=== PATIENT | female | born 1955 | race Caucasian/White ===

== ENCOUNTER 2018-08-04 12:17 | Day surgery (SDC) | payer OTHER ==
[~2018-08-04] VITALS: Ht 172.7 cm; Wt 78.9 kg
[~2018-08-04 12:17] MED LIST: CIPR500; CIPR500 PO; FLUO20 PO; GABA300 PO; HYDACE5 PO; IBUP800 PO; LORA1 PO; METCAR750 PO; NAPR500 PO; PENVK500 PO; RANI150 PO; SULTRIDS; SULTRIDS PO; TRAM50; TRAM50 PO; TRAZ100 PO
[2018-08-04] MEDS ORDERED: IBUP400 (13:17)
[2018-08-04] MEDS ORDERED: OMEPRAZOLE20 MG (13:17)
--- NOTE | 2018-08-04 14:55 | NUR ---
08/04/18 0800 Marion Epperson PT. VERBALIZES NOT HAVING ANY PAIN, SORE THROAT, OR TROUBLE SWALLOWING. PT. JUST MENTIONED FEELING SOME TINGLING IN HER THROAT. PT. DRINKING COFFEE.
== END 2018-08-04 14:33 | disposition home or self-care (01) ==
LOC: ORSCSDS 12:17
PROVIDERS: Internal Medicine Gastroenterology
PROC: 0DB68ZX Excision of Stomach, Via Natural or Artificial Opening Endoscopic, Diagnostic (ICD-10-PCS; principal; 2018-08-04 13:45)
DX: K21.9 Gastro-esophageal reflux disease without esophagitis (principal); K22.2 Esophageal obstruction; K44.9 Diaphragmatic hernia without obstruction or gangrene; B18.2 Chronic viral hepatitis C; I10 Essential (primary) hypertension; E78.5 Hyperlipidemia, unspecified; F32.9 Major depressive disorder, single episode, unspecified; Z79.899 Other long term (current) drug therapy
CPT/HCPCS: 88305; 88342; J2704; J7120